=== PATIENT | female | born 2000 | race Caucasian/White ===

== ENCOUNTER → 2021-10-17 15:27 | Outpatient (CLI) | payer BC, SELFPAY ==
[2021-10-17 16:49] LABS: Blood Urea Nitrogen 15 mg/dl (7-17); Calcium 9.4 mg/dl (8.4-10.2); Carbon Dioxide 27 mmol/L (22.0-30.0); Chloride 103 mmol/L (98-107); Estimated Glomerular Filt Rate 79 ml/min (>60); GFR (African American) 96 ML/MIN (>60); Glucose 87 mg/dl (74-100); Sodium 139 mmol/L (136-145)
[2021-10-18 11:46] LABS: Free Thyroxine Index 2.5 ug/dL (5.93-13.13); T4 (Thyroxine) 8.5 ug/dl (5.53-11.0); Triiodothryronine (T3) Uptake 29 % (23.5-40.5)
[2021-10-18 11:59] LABS: Thyroid Stimulating Hormone 1.42 uIU/mL (0.465-4.68)
== END ==
PROVIDERS: PCP Family Medicine; Visit Provider Internal Medicine Cardiovascular Disease
DX: R00.2 Palpitations (principal)
CPT/HCPCS: 36415; 80048; 84436; 84439; 84443; 84479

== ENCOUNTER → 2022-10-03 09:59 | Outpatient (CLI) | payer OTHER, SELFPAY ==
[2022-10-03 11:07] LABS: Anion Gap 10.1 mEq/L (5-15); Blood Urea Nitrogen 12 mg/dl (7-17); Carbon Dioxide 27 mmol/L (22.0-30.0); Chloride 102 mmol/L (98-107); Estimated Glomerular Filt Rate 90 ml/min (>60); GFR (African American) 109 ML/MIN (>60); Glucose 117 mg/dl (74-100); Potassium 4.1 mmoL/L (3.5-5.1); Sodium 135 mmol/L (136-145)
== END ==
PROVIDERS: PCP Family Medicine; Visit Provider Family Medicine
DX: B35.9 Dermatophytosis, unspecified (principal)
CPT/HCPCS: 36415; 80048

== ENCOUNTER 2023-12-24 15:38 | Emergency (ER) | payer OTHER, SELFPAY ==
[2023-12-24 16:28] VITALS: BMI 25.0
[2023-12-24 16:30] VITALS: BP 121/75; PULSE 60; RESP 19; TEMP 36.4; O2SAT 99; BMI 31.0
[2023-12-24] MEDS: TET/DIPHTH/PERT-ADULT 0.5ML SYRINGE 0.5 ML IM (16:35)
[2023-12-24 16:40] VITALS: BP 121/75; PULSE 60; RESP 19; TEMP 36.4; O2SAT 99
== END 2023-12-24 16:43 | disposition home or self-care (01) ==
PROVIDERS: Emergency Provider Nurse Practitioner Family; PCP Family Medicine
DX: Z23 Encounter for immunization (principal)
CPT/HCPCS: 90471; 90715; 99212; G0463

== ENCOUNTER 2024-05-28 12:53 | Emergency (ER) | payer OTHER, SELFPAY ==
[2024-05-28 13:18] VITALS: BP 156/102; PULSE 82; RESP 18; TEMP 36.4; O2SAT 97; BMI 31.0
--- NOTE | 2024-05-28 13:24 | ED_ITS ---
Discharge Plan Disposition Patient Disposition: Home, Self-Care Condition: Good Prescriptions Prescriptions: New amoxicillin 875 mg tablet 875 mg PO Q12H Qty: 20 0RF methylprednisolone 4 mg Tablets,Dose Pack 4 mg PO DIRECTED 6 Days Qty: 21 0RF Rx Instructions: Take 1 pack as directed for 6 days [id number] [Bromfed DM] 2-30-10 mg/5 mL Syrup 5 ml PO Q6H PRN (Reason: Cough) Qty: 240 0RF Referrals Follow up/Referrals: Jaspal Valles MD [Primary Care Provider] - See instructions Activity Restrictions/Add. Instructions Additional Instructions/Restrictions: Drink plenty of fluids. Take tylenol or ibuprofen for pain or fever. Take the medications as directed. Follow up with your regular doctor. GO TO THE ER FOR ANY WORSENING SYMPTOMS Clinical Impressions Clinical Impression: Pharyngitis Stand Alone Forms Stand Alone Forms: Work/School Release Instructions Patient Instructions: Sore Throat, DI for Pharyngitis/Tonsillopharyngitis -- Adult, Amoxicillin Print Language Print Language: Kyrgyz Discharge ED Provider: Ryan Miner [facility] General Stated complaint: sore throat, fever Mode of Arrival: Ambulatory Source of Information: Patient Time Seen by Provider: 05/28/24 13:24 Description of Symptoms (Recalled from Triage Doc. by RN): SORE THROAT, LOW GRADE FEVER, SWOLLEN TONSILS HEENT Symptoms (Recalled from RN notes): Yes Resp Symptoms (Recalled from RN notes): No Skin Symptoms (Recalled from RN notes): No MS Symptoms (Recalled from RN notes): No Functional Status (Recalled from RN notes): WNL Related Data Previous Rx's ?Medication ?Instructions ?Recorded amoxicillin 875 mg tablet 875 mg PO Q12H #20 tabs 05/28/24 vzritazwauuiuku-yqorzrbjcxzecwo-ED 5 ml PO Q6H PRN Cough #240 mL 05/28/24 2 mg-30 mg-10 mg/5 mL oral syrup (Bromfed DM) methylprednisolone 4 mg tablets in 4 mg PO DIRECTED 6 days #21 tabs 05/28/24 a dose pack Allergies Allergy/AdvReac Type Severity Reaction Status Date / Time No Known Allergies Allergy Verified 01/12/23 11:36 Worker's Comp Is this a Worker's Comp case?: No PFSH PFSH Disclaimer: The information contained in this section may have been updated after the patient was seen, as this information can be updated by other users. Medical History Deviated nasal septum Migraine headache Social History Smoking Status: Never smoker alcohol intake: never substance use type: denies use current occupational status: employed Travel in the last 8 weeks: None ROS Obtained: Yes All systems reviewed & no additional complaints except as documented Constitutional Constitutional: Reports chills and Reports fever(s) Eyes Eyes: Denies eye discharge ENT Ears, Nose, Mouth, and Throat: Reports as per HPI Cardiovascular Cardiovascular: Denies chest pain Respiratory Respiratory: Denies chest congestion and Reports cough Gastrointestinal Gastrointestingal: Reports nausea; Denies abdominal pain, constipation, cramping, diarrhea or vomiting Musculoskeletal Musculoskeletal: Denies arthralgias Integumentary/Breasts Skin/Breast: Denies rash Neurologic Neurologic: Denies paresthesias Physical Exam General General appearance: alert and in no apparent distress Head Head exam: atraumatic, normocephalic and normal inspection Eye Eye exam: Present normal appearance, PERRL and EOMI ENT ENT exam: Present mucous membranes moist and normal external ear exam Expanded ENT Exam TM/Canal exam: Bilateral TM: erythema and bulging Nose exam: Absent sinus tenderness Mouth exam: Present normal external inspection; Absent drooling Teeth exam: Present normal inspection Throat exam: Present tonsillar erythema, tonsillomegaly and tonsillar exudate Neck Neck exam: Present normal inspection, full ROM and trachea midline; Absent tenderness, meningismus or lymphadenopathy Chest Chest inspection: Present normal inspection and symmetric chest wall rise; Absent tenderness Respiratory Respiratory exam: Present normal lung sounds bilaterally; Absent respiratory distress, wheezes, stridor or accessory muscle use Cardiovascular Cardiovascular exam: Present regular rate and normal rhythm; Absent systolic murmur or diastolic murmur Abdominal Exam Abdominal exam: Present soft and normal bowel sounds; Absent distention, tenderness, guarding, rebound or rigidity Extremities Exam Extremities exam: Present normal inspection and normal capillary refill; Absent calf tenderness Back Exam Back exam: Present normal inspection and full ROM; Absent tenderness, CVA tenderness (R) or CVA tenderness (L) Neurological Exam Neurological exam: Present alert, oriented X3 and CN II-XII intact Psychiatric Psychiatric exam: Present normal affect and normal mood Skin Skin exam: Present warm, dry, intact and normal color Medical Decision Making Medical Records Medical records reviewed: No I reviewed the patient's medical records. Screening: Per USPSTF and CDC recommendations, given the prevalence of disease in our region, it is our hospital?s policy to screen for HIV and viral Hepatitis for all patients aged 18 and over and those with ongoing risk factors. Ramírez Inquiry Pt receiving controlled substance: No Vital Signs: 05/28/24 13:18 Temperature 97.6 F Temperature Source Oral Pulse Rate [Left Radial] 82 Respiratory Rate 18 Blood Pressure [Left Arm] 156/102 H Blood Pressure Mean [Left Arm] 120 02 Sat by Pulse Oximetry 97 Lab Data Lab results reviewed: Yes I reviewed the patient's lab results.
[2024-05-28 13:25] LABS: UTC Strep Screen (Rapid) Negative (Negative)
[2024-05-28 14:12] VITALS: BP 156/102; PULSE 82; RESP 18; TEMP 36.4
== END 2024-05-28 14:13 | disposition home or self-care (01) ==
PROVIDERS: Emergency Provider Nurse Practitioner Family; PCP Family Medicine
DX: J02.9 Acute pharyngitis, unspecified (principal)
CPT/HCPCS: 87880; 99213; G0381

== ENCOUNTER 2024-08-04 07:12 | Outpatient (CLI) | payer OTHER, SELFPAY ==
[2024-08-04 07:30] LABS: Alanine Aminotransferase 29 U/L (12-78); Albumin Level 4.8 g/dl (3.5-5.0); Albumin/Globulin Ratio 1.5 (1.1-1.8); Alkaline Phosphatase 82 U/L (38-126); Anion Gap 13.8 mEq/L (5-15); Aspartate Amino Transferase 36 U/L (14-36); Bilirubin,Total 0.9 mg/dl (0.2-1.3); Blood Urea Nitrogen 11 mg/dl (7-17); Calcium 9.3 mg/dl (8.4-10.2); Carbon Dioxide 27 mmol/L (22.0-30.0); Chloride 105 mmol/L (98-107); Chol/HDL Ratio 3.3 (1-3.5); Cholesterol 186 mg/dl (140-200); Estimated Glomerular Filt Rate 77 ml/min (>60); GFR (African American) 93 ML/MIN (>60); Globulin 3.1 g/dL (1.3-3.2); Glucose 95 mg/dl (74-100); HDL Cholesterol 56 mg/dl (40-60); Potassium 3.8 mmoL/L (3.5-5.1); Sodium 142 mmol/L (136-145); Total Protein,Serum 7.9 g/dl (6.3-8.2); Triglycerides 84 mg/dl (30-150); VLDL Cholesterol 17 mg/dL (0-40)
[2024-08-04 07:41] LABS: Direct LDL Cholesterol 97.93 mg/dL (100-129)
[2024-08-04 08:00] LABS: Thyroid Stimulating Hormone 2.32 uIU/mL (0.465-4.68)
[2024-08-04 10:11] LABS: Hemoglobin A1C 5.1 % (4.0-6.0)
[2024-08-04 14:48] LABS: Free T4 (Free Thyroxine) 1.14 ng/dl (0.78-2.19)
[2024-08-05 08:14] LABS: Progesterone 0.1 ng/mL (.)
[2024-08-05 10:10] LABS: Insulin Level Total 11.3 uIU/mL (2.6-24.9)
[2024-08-13 23:06] LABS: Testosterone, Total, LC/MS 35 ng/dL (.)
== END 2024-08-04 23:59 | disposition home or self-care (01) ==
LOC: LAB 07:14
PROVIDERS: PCP Family Medicine; Visit Provider Nurse Practitioner Women's Health
DX: Z31.9 Encounter for procreative management, unspecified (principal)
CPT/HCPCS: 36415; 80053; 80061; 83036; 83525; 84144; 84403; 84439; 84443